=== PATIENT | female | born 1980 | race Caucasian/White ===

== ENCOUNTER 2016-12-30 08:48 | Inpatient (IN) | payer OTHER ==
[2016-12-30 08:48] VITALS: BMI 37.0
--- NOTE | 2016-12-30 09:28 | C.PDOC ---
History Of Present Illness 36 y/o female brought in by EMS presents to the ED with complains of worsening LLQ pain x2 weeks. Pain is localized. Denies fever, nausea,vomiting, diarrhea. Pt reports history of . No PMD. VIA TRANS LLQ PAIN X 2 WEEKS. LOCALIZED WORSENING. NO FEVER NVD. PSH CSECT. NO PMD. EXAM MOD DIST NONTOXIC ABD +LLQ TEND MOD SOFT NO R/G REMAINDE RNEG Time Seen by Provider: 12/30/16 09:07 Chief Complaint (Nursing): Abdominal Pain History Per: Patient History/Exam Limitations: no limitations Onset/Duration Of Symptoms: Days Current Symptoms Are (Timing): Worse Severity: Moderate Location Of Pain/Discomfort: LLQ Radiation Of Pain To:: None Quality Of Discomfort: "Pain" Associated Symptoms: denies: Fever, Nausea, Vomiting, Diarrhea Exacerbating Factors: None Alleviating Factors: None Recent travel outside of the [place]: No Past Medical History Reviewed: Historical Data, Nursing Documentation, Vital Signs Vital Signs: Last Vital Signs Temp 97.4 F L 12/30/16 08:52 Pulse 79 12/30/16 08:52 Resp 20 12/30/16 08:52 BP 136/71 12/30/16 08:52 Pulse Ox 100 12/30/16 10:34 Surgical History: - [facility] Procedures BILAT TUBAL DIVISION NEC (02/05/15) LOW CERVICAL (02/05/15) Family History: States: Unknown Family Hx - Social History Hx Tobacco Use: No Hx Alcohol Use: No Hx Substance Use: No - Immunization History Hx Tetanus Toxoid Vaccination: No Hx Influenza Vaccination: No Hx Pneumococcal Vaccination: No Review Of Systems Except As Marked, All Systems Reviewed And Found Negative. Constitutional: Negative for: Fever Gastrointestinal: Positive for: Abdominal Pain. Negative for: Nausea, Vomiting , Diarrhea Physical Exam - Physical Exam Appears: Non-toxic, In Acute Distress (moderate) Skin: Warm, Dry, No Rash Head: Atraumatic, Normacephalic Chest: Symmetrical Cardiovascular: Rhythm Regular, No Murmur Respiratory: Normal Breath Sounds, No Rales, No Rhonchi, No Wheezing Gastrointestinal/Abdominal: Soft, Tenderness (moderate LLQ), No Guarding, No Rebound Extremity: Bilateral: Atraumatic Neurological/Psych: Oriented x3, Normal Speech ED Course And Treatment - Laboratory Results Result Diagrams: 12/30/16 10:02 12/30/16 10:02 O2 Sat by Pulse Oximetry: 100 (room air) Pulse Ox Interpretation: Normal Medical Decision Making Medical Decision Making: Plan: * CT abdomen * labs * morphine, zofran * IV fluids ED OBSERVATION Date of observation admission: 12/30/16 Time of observation admission: 09:29 - Observation admission statement Patient is being placed in observation because:: ABD PAIN - Goals of Observation Goals of observation are:: NEG ACUTE BAD, SX IMPROVE - Progress Note Progress Note: 12/30/16 14:18 D/W DR FUNK SURG STAFF TRAINER WILL ADMIT EXAM NAD NONTOXIC. DOES NOT WISH ADDL PAIN MEDS @ THIS TIME Disposition Counseled Patient/Family Regarding: Studies Performed, Diagnosis - Disposition Disposition: HOSPITALIZED Disposition Time: 14:28 Condition: STABLE - POA Present On Arrival: None - Clinical Impression Clinical Impression: Intussusception intestine - Scribe Statement The provider has reviewed the documentation as recorded by the Luca Bingham Provider Attestation: All medical record entries made by the Luca were at my direction and personally dictated by me. I have reviewed the chart and agree that the record accurately reflects my personal performance of the history, physical exam, medical decision making, and the department course for this patient. I have also personally directed, reviewed, and agree with the discharge instructions and disposition. Decision To Admit - Pt Status Changed To: Hospital Disposition Of: Inpatient - Admit Certification Admit to Inpatient:: After my assessment, the patient will require hospitalization for at least two midnights. This is because of the severity of symptoms shown, intensity of services needed, and/or the medical risk in this patient being treated as an outpatient. - InPatient: Physician Admission Certification:: SEE NOTE - . Bed Request Type: Regular Admitting Physician: Mohamud Funk Patient Diagnosis: Intussusception intestine
[2016-12-30] MEDS ORDERED: Sodium Chloride 0.9% 1,000 ML IV ONE (09:29)
[2016-12-30] MEDS ORDERED: Iohexol 240 (50 ml) PO STA (09:29)
[2016-12-30] MEDS ORDERED: Sodium Chloride 0.9% 1,000 ML ONE (09:58)
[2016-12-30] MEDS ORDERED: Morphine 4 MG/ML VIAL ONE (09:58)
[2016-12-30] MEDS ORDERED: Iohexol 240 (50 ml) ONE (09:58)
[2016-12-30 10:06] LABS: RBC URINE < 1 /hpf (0-3); URINE BILIRUBIN NEGATIVE (NEGATIVE); URINE BLOOD NEGATIVE (NEGATIVE); URINE COLOR Yellow (YELLOW); URINE GLUCOSE (UA) NORMAL (Normal); URINE KETONE NEGATIVE (NEGATIVE); URINE LEUKOCYTE ESTERASE NEG Leu/uL (Negative); URINE PROTEIN NEGATIVE (NEGATIVE); URINE UROBILINOGEN NORMAL mg/dL (0.2-1.0); WBC URINE < 1 /hpf (0-5)
[2016-12-30 10:09] LABS: BASO # 0.1 K/uL (0.0-0.2); BASO % 0.6 % (0.0-2.0); EOS # 0.1 K/uL (0.0-0.7); HEMATOCRIT 40.9 % (34.0-47.0); LYMPH # 2.6 K/uL (1.0-4.3); LYMPH % 32.6 % (20.0-40.0); MEAN CELL VOLUME 85.3 fL (81.0-99.0); MEAN CORPUSCULAR HEMOGLOBIN 28.9 pg (27.0-31.0); MEAN CORPUSCULAR HGB CONC 33.9 g/dL (33.0-37.0); MEAN PLATELET VOLUME 8.6 fL (7.2-11.7); MONO # 0.5 K/uL (0.0-0.8); MONO % 6.1 % (0.0-10.0); RED CELL DISTRIBUTION WIDTH 14.5 % (11.5-14.5); WHITE BLOOD COUNT 7.9 K/uL (4.8-10.8)
[2016-12-30 10:19] LABS: CHLORIDE 99 mmol/L (98-107); SODIUM 137 mmol/L (132-148)
[2016-12-30 10:22] LABS: BLOOD UREA NITROGEN 7 mg/dL (7-17); CARBON DIOXIDE 27 mmol/L (22-30); GFR AFRICAN-AMERICAN > 60; GLUCOSE,RANDOM 92 mg/dL (65-105)
[2016-12-30 10:23] LABS: CALCIUM 8.4 mg/dl (8.6-10.4)
[2016-12-30] MEDS ORDERED: Iodixanol 320 MG/ML 100 ML BOTTLE IV ONE (11:45)
--- NOTE | 2016-12-30 14:04 | CT ---
PROCEDURE: CT Abdomen and Pelvis with contrast HISTORY: abd pain LLQ COMPARISON: Comparison is made to the previous ultrasound of the pelvis dated 06/26/2014 TECHNIQUE: Contrast dose: 100 mL Visipaque 320. Axial and reformatted coronal and sagittal CT images of the abdomen and pelvis were obtained after IV and oral contrast administration. Radiation dose: Total exam DLP = 1100.77 mGy-cm. This CT exam was performed using one or more of the following dose reduction techniques: Automated exposure control, adjustment of the mA and/or kV according to patient size, and/or use of iterative reconstruction technique. FINDINGS: LOWER THORAX: Unremarkable. LIVER: Unremarkable. No gross lesion or ductal dilatation. GALLBLADDER AND BILE DUCTS: Unremarkable. PANCREAS: Unremarkable. No gross lesion or ductal dilatation. SPLEEN: Unremarkable. ADRENALS: Unremarkable. No mass. KIDNEYS AND URETERS: Unremarkable. No hydronephrosis. No solid mass. VASCULATURE: Unremarkable. No aortic aneurysm. BOWEL: There is a small bowel small bowel intussusception seen at the left mid abdomen image 53 series 2. Findings nonspecific and may represent transitional small bowel intussusception. Otherwise no evidence of acute pathology in the GI system. APPENDIX: Normal appendix. PERITONEUM: Unremarkable. No free fluid. No free air. LYMPH NODES: Unremarkable. No enlarged lymph nodes. BLADDER: Unremarkable. REPRODUCTIVE: There is 4.5 centimeter complex cystic lesion at the left adnexa. The uterus and right adnexa are otherwise unremarkable. BONES: No acute fracture. OTHER FINDINGS: None. IMPRESSION: Suspicious for small bowel small bowel intussusception at the left mid abdomen best seen on image 53 series 2. No evidence of bowel obstruction. 4.5 centimeter complex cystic lesion at the left adnexa. If indicated further assessment by ultrasound may be obtained.
--- NOTE | 2016-12-30 16:55 | CP.PCM.CON ---
<Rafael Sgeundo - Last Filed: 12/30/16 17:17> History of Present Illness - History of Present Illness History of Present Illness: BOOTH MANAGER Consult for Dr. Burr 36 year old Female presents with Left lower abdominal pain starting a few days ago. She came to the ER today because the pain got worse. Patient states pain is associated with nausea and vomiting. Content of the vomiting included clear liquid and saliva, no bile and no blood. Pain radiates towards the left upper quadrant. Patient admits to one day of non-blood diarrhea last week. Patient denies fever and chills. She states she had a vaginal ultrasound in September and was told that she had a fibroid and a cyst on her ovary. Patient was told to follow up w/ serial ultrasounds to monitor size. Patient's BOOTH MANAGER is PastGynHx: , both c-sections. Tubal ligation. FDLMP: 12/17/16, periods regular, 4-5 days, describes as heavy with clots Pap Smear: September 2016, positive for HPV PMHx: GERD SurgicalHx: 2 C-sections, tubal ligation, tonsillectomy Allergies: NKDA Medications: Denies SocialHx: Denies tobacco, drugs, and alcohol, works as a homemaker Family Hx: Mother-breast cancer, great uncle (mother's side) - brain cancer Past Patient History - Infectious Disease Hx of Infectious Diseases: None - Past Social History Smoking Status: Never Smoked - PSYCHIATRIC Hx Substance Use: No - SURGICAL HISTORY Hx Surgeries: Yes Hx Section: Yes (x2) - ANESTHESIA Hx Anesthesia: Yes Hx Anesthesia Reactions: No Meds Allergies/Adverse Reactions: Allergies Allergy/AdvReac Type Severity Reaction Status Date / Time No Known Allergies Allergy Verified 12/30/16 08:54 - Medications Medications: Current Medications Sodium Chloride (Sodium Chloride 0.9%) 1,000 mls @ 100 mls/hr IV .Q10H ONE Stop: 12/30/16 19:28 Last Admin: 12/30/16 10:02 Dose: 100 mls/hr Morphine Sulfate (Morphine) 2 mg IVP Q4 PRN PRN Reason: Pain, moderate (4-7) Ondansetron HCl (Zofran Inj) 4 mg IVP Q4 PRN PRN Reason: Nausea/Vomiting Physical Exam - Constitutional Appears: Non-toxic, No Acute Distress - Head Exam Head Exam: ATRAUMATIC - Eye Exam Eye Exam: EOMI, PERRL - ENT Exam ENT Exam: Mucous Membranes Dry - Respiratory Exam Respiratory Exam: Clear to Auscultation Bilateral, NORMAL BREATHING PATTERN - Cardiovascular Exam Cardiovascular Exam: REGULAR RHYTHM, +S1, +S2 - GI/Abdominal Exam GI & Abdominal Exam: Soft, Tenderness (greatest in the LLQ). absent: Distended , Firm, Guarding, Rebound, Rigid - Extremities Exam Extremities exam: Negative for: pedal edema - Neurological Exam Neurological exam: Alert, Oriented x3 - Psychiatric Exam Psychiatric exam: Anxious, Normal Affect - Skin Skin Exam: Dry, Intact, Normal Color, Warm Results - Vital Signs Recent Vital Signs: Last Vital Signs Temp 98.5 F 12/30/16 14:43 Pulse 100 H 12/30/16 14:43 Resp 20 12/30/16 14:43 BP 124/79 12/30/16 14:43 Pulse Ox 100 12/30/16 14:43 - Labs Result Diagrams: 12/30/16 10:02 12/30/16 10:02 Labs: Laboratory Results - last 24 hr 12/30/16 16:05 Carcinoembryonic Ag 1.0 CA 125 Antigen 15.5 Assessment & Plan - Assessment and Plan (Free Text) Assessment: 36 year old female presents with abdominal pain and vomiting 2/[address]: intusseception at left mid abdomen. No SBO 4.5 cm complex ovarian cyst, left side U/S: 4.3 hyperechoic left sided cyst could represent hemorrhagic cyst. Normal blood flow bilaterally Anterior fibroid 2.5 x 2.6 cm Plan: - NPO, IVF, pain management - serial abdominal exams - Surgery following - Recommend serial transvaginal ultrasounds to monitor cyst Further recs discuss with Dr. Leno Segundo, PGY1 <Bhupendra Burr - Last Filed: 12/30/16 17:33> Meds - Medications Medications: Current Medications Famotidine (Pepcid) 20 mg IVP Q12 ANNA Sodium Chloride (Sodium Chloride 0.9%) 1,000 mls @ 100 mls/hr IV .Q10H ONE Stop: 12/30/16 19:28 Last Admin: 12/30/16 10:02 Dose: 100 mls/hr Sodium Chloride (Sodium Chloride 0.9%) 1,000 mls @ 125 mls/hr IV .Q8H ANNA Morphine Sulfate (Morphine) 2 mg IVP Q4 PRN PRN Reason: Pain, moderate (4-7) Ondansetron HCl (Zofran Inj) 4 mg IVP Q4 PRN PRN Reason: Nausea/Vomiting Results - Vital Signs Recent Vital Signs: Last Vital Signs Temp 97.8 F 12/30/16 16:52 Pulse 70 12/30/16 16:52 Resp 18 12/30/16 16:52 BP 123/73 12/30/16 16:52 Pulse Ox 96 12/30/16 16:52 - Labs Result Diagrams: 12/30/16 10:02 12/30/16 10:02 Labs: Laboratory Results - last 24 hr 12/30/16 16:05 Carcinoembryonic Ag 1.0 CA 125 Antigen 15.5 Attending/Attestation - Attestation I have personally seen and examined this patient.: Yes I have fully participated in the care of the patient.: Yes I have reviewed all pertinent clinical information: Yes Notes (Text): 12/30/16 17:30 Patient examined at bedside Agree with resident exam, assessment and plan Patient with c/o LLQ pain.Ct scan shows intususseption and left sided ovarian cyst Ultrasound shows uterus with small fibroid and hemorrhagic left ovarian cyst. Patient with no signs of acute abomen on exam No surgical intervention recommended from cost clerk stand-point.Pain control recommended for Hemorrhagic cyst Recommmend repeat ultrasound in 6 weeks Continue management as per surgery
--- NOTE | 2016-12-30 17:05 | CP.PCM.HP ---
History of Present Illness - History of Present Illness History of Present Illness: Surgery: Dr. Pal CC: Abd pain HPI: 36F w. hx of hyperlipidemia and gastritis presents w. diffuse abd pain. Pain has been present for several days and has been worsening over the past 2 days prompting her to come to ED. She states that the pain strong. Was initially intermittent, now constant. She had nausea/vomting x 1 this AM. She is passing flatus. Had BM today. Last BM was 1 week ago. Pt denies changes in appetite. No fever, + chills overnight. No MCKEON/blurred vision, no CP/palpitations , no SOB/cough, no hemautria/dysuria, no vaginal discharge. Pt states that she had a colonoscopy and EGD in [facility] back in March. She was told that she had gastritis and H. Pylori, had abx for 2 weeks and no additional f/u upon completion. PMH: Hyperlipidemia, gastritis, H. Pylori PSH: , tonsils Meds: none NKDA Social: no ETOH/tobacco/drugs Fhx: non-contributory Present on Admission - Present on Admission Any Indicators Present on Admission: No Review of Systems - Review of Systems All systems: reviewed and no additional remarkable complaints except (HPI) Past Patient History - Infectious Disease Hx of Infectious Diseases: None - Past Social History Smoking Status: Never Smoked - PSYCHIATRIC Hx Substance Use: No - SURGICAL HISTORY Hx Surgeries: Yes Hx Section: Yes (x2) - ANESTHESIA Hx Anesthesia: Yes Hx Anesthesia Reactions: No Meds Allergies/Adverse Reactions: Allergies Allergy/AdvReac Type Severity Reaction Status Date / Time No Known Allergies Allergy Verified 12/30/16 08:54 Physical Exam - Constitutional Appears: Non-toxic, No Acute Distress - Head Exam Head Exam: ATRAUMATIC, NORMOCEPHALIC - Eye Exam Eye Exam: EOMI. absent: Scleral icterus - ENT Exam ENT Exam: Mucous Membranes Moist - Neck Exam Neck exam: Positive for: Full Rom - Respiratory Exam Respiratory Exam: NORMAL BREATHING PATTERN. absent: Accessory Muscle Use, Respiratory Distress - GI/Abdominal Exam GI & Abdominal Exam: Soft, Tenderness (mild, suprapubic/LLQ). absent: Distended , Firm, Guarding, Mass, Rigid - Extremities Exam Extremities exam: Negative for: calf tenderness, pedal edema - Neurological Exam Neurological exam: Alert, Oriented x3 Results - Vital Signs Recent Vital Signs: Last Vital Signs Temp 97.8 F 12/30/16 16:52 Pulse 70 12/30/16 16:52 Resp 18 12/30/16 16:52 BP 123/73 12/30/16 16:52 Pulse Ox 96 12/30/16 16:52 - Labs Result Diagrams: 12/30/16 10:02 12/30/16 10:02 Labs: Laboratory Results - last 24 hr 12/30/16 16:05 Carcinoembryonic Ag 1.0 CA 125 Antigen 15.5 - Imaging and Cardiology CT scan - abdomen Status: Image reviewed by me, Report reviewed by me Assessment & Plan - Assessment and Plan (Free Text) Assessment: 36F w. abd pain, intussusception vs, ovarian cyst -consult GI and REGIONAL GEODETIC ADVISOR, f/u recommendations -NPO -IVF -morphine -zofran -serial abd exams -no urgent surgical intervention at this time -SCDs -f/u labs and TV U/S -d/w attending Christianne PGY2
--- NOTE | 2016-12-30 17:16 | US ---
HISTORY: ovarian cyst COMPARISON: None available. TECHNIQUE: Transabdominal and endovaginal ultrasound examination of the pelvis. FINDINGS: UTERUS: Measures 12.6 x 4.2 x 6 cm. Normal in size and appearance. There is anterior uterine fibroid measures 2.5 x 2.1 x 2.6 ENDOMETRIUM: Measures 7.7 mm in diameter. Unremarkable. CERVIX: No cervical abnormality identified. RIGHT OVARY: Measures 2.9 x 2 x 2.3 cm. No solid mass. Normal flow. LEFT OVARY: Measures 5.6 x 4.3 x 6 cm. There is slightly echogenic lesion at the left ovary measures 4.3 x 3.7 centimeter may represent hemorrhagic cyst P Normal flow. FREE FLUID: No significant free fluid noted. OTHER FINDINGS: None. IMPRESSION: 4.3 centimeter slightly hyperechoic lesion at the left ovary may represent hemorrhagic cyst. Follow-up reassessment after 6 weeks is recommended. Blood flow appreciated at both ovaries. Anterior uterine fibroid measures 2.5 x 2.6 centimeter.
[2016-12-30] MEDS: Sodium Chloride 0.9% 1,000 ML IV SCH (18:06)
--- NOTE | 2016-12-30 19:04 | CP.PCM.CON ---
History of Present Illness - History of Present Illness History of Present Illness: ASked today to see patietn for GI service for intussuseption. Pt seen with Rn and anesthesiology technologist Halley. present Pt reports 2 weeks of mid left abdom pain- mild until yesterda- severe, sharp pain. Came to ER. Had normal BMs and is passing gas. PMG 1 yr ago: EGD- gastritis and treated h pylori, and reports neg colonosocpy in [place]. Review of Systems - Constitutional Constitutional: absent: Chills, Fatigue, Fever, Headache, Weight Loss - EENT Eyes: absent: Photophobia - Cardiovascular Cardiovascular: absent: Chest Pain, Dyspnea - Respiratory Respiratory: absent: Dyspnea, Hemoptysis, Wheezing - Gastrointestinal Gastrointestinal: Abdominal Pain. absent: Constipation, Diarrhea, Hematemesis, Hematochezia, Loose Stools, Melena, Nausea - Genitourinary Genitourinary: absent: Flank Pain, Hematuria - Musculoskeletal Musculoskeletal: absent: Muscle Cramps - Integumentary Integumentary: absent: Rash, Jaundice - Neurological Neurological: absent: Convulsions, Memory Loss Past Patient History - Infectious Disease Hx of Infectious Diseases: None - Past Social History Smoking Status: Never Smoked - CARDIAC Hx Cardiac Disorders: No - PULMONARY Hx Respiratory Disorders: No - NEUROLOGICAL Hx Neurological Disorder: No - HEENT Hx HEENT Problems: No - RENAL Hx Chronic Kidney Disease: No - ENDOCRINE/METABOLIC Hx Endocrine Disorders: No - HEMATOLOGICAL/ONCOLOGICAL Hx Blood Disorders: No - INTEGUMENTARY Hx Dermatological Problems: No - MUSCULOSKELETAL/RHEUMATOLOGICAL Hx Falls: No - GENITOURINARY/GYNECOLOGICAL Hx Genitourinary Disorders: No - PSYCHIATRIC Hx Substance Use: No - SURGICAL HISTORY Hx Surgeries: Yes Hx Section: Yes (x2) - ANESTHESIA Hx Anesthesia: Yes Hx Anesthesia Reactions: No Hx Malignant Hyperthermia: No Has any member of the family had a problem w/ anesthesia?: No Meds Allergies/Adverse Reactions: Allergies Allergy/AdvReac Type Severity Reaction Status Date / Time No Known Allergies Allergy Verified 12/30/16 08:54 - Medications Medications: Current Medications Famotidine (Pepcid) 20 mg IVP Q12 ANNA Sodium Chloride (Sodium Chloride 0.9%) 1,000 mls @ 100 mls/hr IV .Q10H ONE Stop: 12/30/16 19:28 Last Admin: 12/30/16 10:02 Dose: 100 mls/hr Sodium Chloride (Sodium Chloride 0.9%) 1,000 mls @ 125 mls/hr IV .Q8H ANNA Last Admin: 12/30/16 18:06 Dose: 125 mls/hr Morphine Sulfate (Morphine) 2 mg IVP Q4 PRN PRN Reason: Pain, moderate (4-7) Ondansetron HCl (Zofran Inj) 4 mg IVP Q4 PRN PRN Reason: Nausea/Vomiting Physical Exam - Constitutional Appears: Well - Respiratory Exam Respiratory Exam: Clear to Auscultation Bilateral - Cardiovascular Exam Cardiovascular Exam: RRR - GI/Abdominal Exam GI & Abdominal Exam: Normal Bowel Sounds, Soft, Tenderness. absent: Firm, Guarding, Rigid Additional comments: Mild mid left tenderness - Extremities Exam Extremities exam: Positive for: normal inspection. Negative for: pedal edema - Neurological Exam Neurological exam: Alert, Oriented x3 - Psychiatric Exam Psychiatric exam: Normal Affect, Normal Mood Results - Vital Signs Recent Vital Signs: Last Vital Signs Temp 97.8 F 12/30/16 16:52 Pulse 70 12/30/16 16:52 Resp 18 12/30/16 16:52 BP 123/73 12/30/16 16:52 Pulse Ox 96 12/30/16 16:52 - Labs Result Diagrams: 12/30/16 10:02 12/30/16 10:02 Labs: Laboratory Results - last 24 hr 12/30/16 16:05 Carcinoembryonic Ag 1.0 CA 125 Antigen 15.5 Assessment & Plan (1) Abdominal pain Assessment and Plan: Due to intussuseption. Pt reports less abdom pain now. No obstruction. REC: follow-up by surgery and further management as per Surgeons. Status: Acute (2) Gastritis Assessment and Plan: H pylori treated 03/24. Rec: PPI., bland diet Status: Acute (3) Reflux esophagitis Status: Acute (4) Intussusception intestine Assessment and Plan: Treatment as per Surgical team Status: Acute
[2016-12-30 19:15] LABS: VENOUS BLOOD GAS BASE EXCESS -0.3 mmol/L (0.0-2.0); VENOUS BLOOD GAS PCO2 38 mmHg (40-60); VENOUS BLOOD PH 7.41 (7.32-7.43)
[2016-12-30 20:31] VITALS: RESP 20
[2016-12-31] MEDS: Sodium Chloride 0.9% 1,000 ML IV SCH (01:15)
[2016-12-31 01:58] VITALS: O2SAT 98
[2016-12-31 08:44] VITALS: BP 112/69; PULSE 84; TEMP 98
[2016-12-31 08:55] LABS: HEMATOCRIT 37.2 % (34.0-47.0); MEAN CELL VOLUME 86.4 fL (81.0-99.0); MEAN CORPUSCULAR HEMOGLOBIN 28.8 pg (27.0-31.0); MEAN CORPUSCULAR HGB CONC 33.3 g/dL (33.0-37.0); MEAN PLATELET VOLUME 8.6 fL (7.2-11.7); RED CELL DISTRIBUTION WIDTH 14.5 % (11.5-14.5); WHITE BLOOD COUNT 9.1 K/uL (4.8-10.8)
[2016-12-31 10:19] LABS: CHLORIDE 104 mmol/L (98-107); POTASSIUM 3.9 mmol/L (3.6-5.2); SODIUM 136 mmol/L (132-148)
[2016-12-31 10:22] LABS: BLOOD UREA NITROGEN 7 mg/dL (7-17); CARBON DIOXIDE 22 mmol/L (22-30); GFR AFRICAN-AMERICAN > 60; GLUCOSE,RANDOM 84 mg/dL (65-105)
[2016-12-31 10:23] LABS: CALCIUM 7.6 mg/dl (8.6-10.4)
--- NOTE | 2016-12-31 10:40 | CP.PCM.PN ---
Subjective - Date & Time of Evaluation Date of Evaluation: 12/31/16 Time of Evaluation: 10:34 - Subjective Subjective: Surgery: Dr. Pal Pt seen and examined. Resting comfortably in bed. Pain improved compared to yesterday. No F/C. No N/V/D. Objective - Vital Signs/Intake and Output Vital Signs (last 24 hours): Temp Pulse Resp BP Pulse Ox 98.0 F 84 20 112/69 98 12/31/16 08:42 12/31/16 08:42 12/31/16 08:42 12/31/16 08:42 12/31/16 08:42 Intake and Output: 12/31/16 12/31/16 06:59 18:59 Intake Total 1000 Balance 1000 - Medications Medications: Current Medications Famotidine (Pepcid) 20 mg IVP Q12 [facility] Last Admin: 12/31/16 09:11 Dose: 20 mg Sodium Chloride (Sodium Chloride 0.9%) 1,000 mls @ 125 mls/hr IV .Q8H [facility] Last Admin: 12/31/16 01:15 Dose: 125 mls/hr Morphine Sulfate (Morphine) 2 mg IVP Q4 PRN PRN Reason: Pain, moderate (4-7) Last Admin: 12/30/16 20:23 Dose: 2 mg Ondansetron HCl (Zofran Inj) 4 mg IVP Q4 PRN PRN Reason: Nausea/Vomiting - Labs Labs: 12/31/16 08:50 12/31/16 08:50 - Constitutional Appears: Non-toxic, No Acute Distress - Head Exam Head Exam: ATRAUMATIC, NORMOCEPHALIC - Eye Exam Eye Exam: EOMI Pupil Exam: NORMAL ACCOMODATION - ENT Exam ENT Exam: Mucous Membranes Moist - Neck Exam Neck Exam: Full ROM - Respiratory Exam Respiratory Exam: NORMAL BREATHING PATTERN. absent: Accessory Muscle Use, Respiratory Distress - GI/Abdominal Exam GI & Abdominal Exam: Soft. absent: Distended, Firm, Guarding, Rigid, Tenderness , Hernia, Rebound - Extremities Exam Extremities Exam: absent: Calf Tenderness, Pedal Edema - Neurological Exam Neurological Exam: Alert, Awake, Oriented x3 Assessment and Plan - Assessment and Plan (Free Text) Assessment: 36F w. abd pain, ovarian cyst vs intussusception -Per POWERHOUSE ENGINEER, ovarian cyst can be managed outpatient -Per GI, no intervention for intussuception from their stand point -Prelim urine cx: positive gram (+) cocci, will start cipro -will start CLD, monitor bowel fxn, ADAT -serial abd exams -d/w attending Christianne PGY2
--- NOTE | 2016-12-31 11:23 | CP.PCM.PN ---
Subjective - Date & Time of Evaluation Date of Evaluation: 12/31/16 Time of Evaluation: 11:22 - Subjective Subjective: no complaints. pe- essentially neg. ok for discharge Objective - Vital Signs/Intake and Output Vital Signs (last 24 hours): Temp Pulse Resp BP Pulse Ox 98.0 F 84 20 112/69 98 12/31/16 08:42 12/31/16 08:42 12/31/16 08:42 12/31/16 08:42 12/31/16 08:42 Intake and Output: 12/31/16 12/31/16 06:59 18:59 Intake Total 1000 Balance 1000 - Medications Medications: Current Medications Ciprofloxacin (Cipro) 500 mg PO BID ANNA Famotidine (Pepcid) 20 mg IVP Q12 [facility] Last Admin: 12/31/16 09:11 Dose: 20 mg Sodium Chloride (Sodium Chloride 0.9%) 1,000 mls @ 125 mls/hr IV .Q8H [facility] Last Admin: 12/31/16 01:15 Dose: 125 mls/hr Morphine Sulfate (Morphine) 2 mg IVP Q4 PRN PRN Reason: Pain, moderate (4-7) Last Admin: 12/30/16 20:23 Dose: 2 mg Ondansetron HCl (Zofran Inj) 4 mg IVP Q4 PRN PRN Reason: Nausea/Vomiting - Labs Labs: 12/31/16 08:50 12/31/16 08:50
== END 2016-12-31 12:51 | disposition home or self-care (01) | DRG 390 ==
LOC: C.ER 08:48 → C.9OBSV 09:29 → OBSVTOIN 14:28 → C.9E 14:28 → C.3T 15:05 → C.9E 15:42 → C.6T 16:40
PROVIDERS: ADMIT Surgery; ATTEND Surgery
DX: K56.1 Intussusception (principal); N83.202 Unspecified ovarian cyst, left side; E78.5 Hyperlipidemia, unspecified; K29.70 Gastritis, unspecified, without bleeding; K21.0 Gastro-esophageal reflux disease with esophagitis

== ENCOUNTER 2017-11-17 08:45 | Emergency (ER) | payer OTHER ==
[2017-11-17 08:45] VITALS: BMI 37.0
[2017-11-17 08:50] VITALS: BP 125/76; PULSE 89; RESP 20; TEMP 98.1; O2SAT 99
--- NOTE | 2017-11-17 09:46 | C.PDOC ---
History Of Present Illness 36 y/o female presents to the ED with 1 week history of runny nose, cough, and sensation of ear fullness. She denies associated fever, neck pain/stiffness, headache, chest pain, or SOB. Patient has not tried any [id number] medications at home. Time Seen by Provider: 11/17/17 09:34 Chief Complaint (Nursing): Cough, Cold, Congestion History Per: Patient History/Exam Limitations: no limitations Onset/Duration Of Symptoms: Days (x 1 week) Current Symptoms Are (Timing): Still Present Past Medical History Reviewed: Historical Data, Nursing Documentation, Vital Signs Vital Signs: Last Vital Signs Temp 98.1 F 11/17/17 08:47 Pulse 89 11/17/17 08:47 Resp 20 11/17/17 08:47 BP 125/76 11/17/17 08:47 Pulse Ox 99 11/17/17 11:21 - Medical History PMH: Hyperlipidemia Denies: Chronic Kidney Disease Surgical History: - [facility] Procedures BILAT TUBAL DIVISION NEC (02/05/15) LOW CERVICAL (02/05/15) Family History: States: Unknown Family Hx - Social History Hx Tobacco Use: No Hx Alcohol Use: No Hx Substance Use: No - Immunization History Hx Tetanus Toxoid Vaccination: No Hx Influenza Vaccination: No Hx Pneumococcal Vaccination: No Review Of Systems Constitutional: Negative for: Fever, Chills ENT: Positive for: Nose Discharge, Nose Congestion, Other (Ear fullness) Cardiovascular: Negative for: Chest Pain Respiratory: Positive for: Cough. Negative for: Shortness of Breath Neurological: Negative for: Headache Physical Exam - Physical Exam Appears: Non-toxic, No Acute Distress Skin: Warm, Dry, No Rash Head: Atraumatic, Normacephalic Eye(s): bilateral: Normal Inspection, PERRL, EOMI Ear(s): Bilateral: Normal (no erythema) Nose: Discharge (clear nasal discharge) Oral Mucosa: Moist Throat: Erythema (mild), No Exudate Neck: Normal ROM, Supple Chest: Symmetrical Cardiovascular: Rhythm Regular, No Murmur Respiratory: Normal Breath Sounds, No Rales, No Rhonchi, No Wheezing Neurological/Psych: Oriented x3, Normal Speech ED Course And Treatment O2 Sat by Pulse Oximetry: 99 (RA) Pulse Ox Interpretation: Normal Medical Decision Making Medical Decision Making: Impression: 36 y/o F with URI symptoms Patient counseled regarding diagnosis. Will d/c patient home with rx for Claritin. Advised to follow up with the clinic for further evaluation Disposition Counseled Patient/Family Regarding: Diagnosis, Need For Followup, Rx Given - Disposition Referrals: at [facility] [Outside] Disposition: HOME/ ROUTINE Disposition Time: 09:41 Condition: STABLE Prescriptions: Loratadine/Pseudoephedrine [Claritin-D 24 Hour Tablet] 1 each PO HS #10 tab.er.[id number] Instructions: Upper Respiratory Infection (ED) Forms: [employer] (German), Work Excuse - POA Present On Arrival: None - Clinical Impression Clinical Impression: Influenza-like illness - Scribe Statement The provider has reviewed the documentation as recorded by the Luca Solis Provider Attestation: All medical record entries made by the Luca were at my direction and personally dictated by me. I have reviewed the chart and agree that the record accurately reflects my personal performance of the history, physical exam, medical decision making, and the department course for this patient. I have also personally directed, reviewed, and agree with the discharge instructions and disposition.
== END 2017-11-17 09:45 | disposition home or self-care (01) ==
LOC: C.ER 08:45
DX: J11.1 Influenza due to unidentified influenza virus with other respiratory manifestations (principal)

== ENCOUNTER 2017-12-30 18:06 | Emergency (ER) | payer SELFPAY ==
[2017-12-30 18:06] VITALS: BMI 37.0
[2017-12-30 18:18] VITALS: TEMP 98.7
[2017-12-30] MEDS ORDERED: DiphenhydrAMINE 50 mg/ml Inj IVP STA (18:42)
[2017-12-30] MEDS ORDERED: Sodium Chloride 0.9% 1,000 ML IV ONE (18:42)
--- NOTE | 2017-12-30 18:48 | C.PDOC ---
History Of Present Illness 37 y/o female with no significant PMHx presents to the ED complaining of dizziness, headache, nausea, and vomiting for 2 days. Denies any associated fevers or URI symptoms. Patient has no other complaints at this time. Also denies any weakness, numbness, chest pain, or SOB. Time Seen by Provider: 12/30/17 18:31 Chief Complaint (Nursing): Dizziness/Lightheaded History Per: Patient History/Exam Limitations: no limitations Onset/Duration Of Symptoms: Days Current Symptoms Are (Timing): Still Present Past Medical History Reviewed: Historical Data, Nursing Documentation, Vital Signs Vital Signs: Last Vital Signs Temp 98.7 F 12/30/17 20:08 Pulse 82 12/30/17 20:08 Resp 18 12/30/17 20:08 BP 118/77 12/30/17 20:08 Pulse Ox 100 12/30/17 20:08 - Medical History PMH: Hyperlipidemia Denies: Chronic Kidney Disease Surgical History: - [facility] Procedures BILAT TUBAL DIVISION NEC (02/05/15) LOW CERVICAL (02/05/15) Family History: States: Unknown Family Hx - Social History Hx Tobacco Use: No Hx Alcohol Use: No Hx Substance Use: No - Immunization History Hx Tetanus Toxoid Vaccination: No Hx Influenza Vaccination: No Hx Pneumococcal Vaccination: No Review Of Systems Except As Marked, All Systems Reviewed And Found Negative. Constitutional: Negative for: Fever, Chills Eyes: Negative for: Vision Change Cardiovascular: Negative for: Chest Pain Respiratory: Negative for: Cough, Shortness of Breath Gastrointestinal: Positive for: Nausea, Vomiting Neurological: Positive for: Headache, Dizziness. Negative for: Weakness, Numbness Physical Exam - Physical Exam Appears: Non-toxic, No Acute Distress Skin: Normal Color, Warm, Dry Head: Atraumatic, Normacephalic Eye(s): bilateral: Normal Inspection, PERRL, EOMI Nose: Normal Oral Mucosa: Moist Neck: Normal ROM, Supple Chest: Symmetrical Cardiovascular: Rhythm Regular, No Murmur Respiratory: Normal Breath Sounds, No Rales, No Rhonchi, No Wheezing Gastrointestinal/Abdominal: Soft, No Tenderness, No Distention Extremity: Bilateral: Atraumatic, Normal Color And Temperature, Normal ROM Neurological/Psych: Oriented x3, Normal Speech, Normal Cranial Nerves, Normal Motor, Normal Sensation, Other (No focal deficits) Gait: Steady ED Course And Treatment - Laboratory Results Result Diagrams: 12/30/17 19:08 12/30/17 19:08 O2 Sat by Pulse Oximetry: 98 (RA) Pulse Ox Interpretation: Normal Medical Decision Making Medical Decision Making: matt nv - no thunderclap, neuro intect Time: 18:42 Initial Plan: * CMP * CBC * PTT * Prothrombin time * UA * IV fluids * Reglan 10 mg IV * Benadryl 25 mg IV * * pt reassesed pain completely resolved. neuro intact asking for dc. in indication at this time for neuo imaging. encouraged outpt fu. Disposition - Disposition Referrals: [facility] [Outside] [facility] [Outside] Tyree Barahona MD [Staff Provider] - Disposition: HOME/ ROUTINE Disposition Time: 08:00 Condition: STABLE Additional Instructions: please follow up with your doctor. return to er with worsening symptoms or concerns. Prescriptions: Acetaminophen/Butalbital/Caf [Fioricet] 1 tab PO Q8 PRN #20 tab PRN Reason: Headache Instructions: Headache, Adult Forms: [facility] (Romansh) Print Language: UKRAINIAN - Clinical Impression Clinical Impression: Headache - Scribe Statement The provider has reviewed the documentation as recorded by the Scribe (Olga Solis) Provider Attestation: All medical record entries made by the Scribe were at my direction and personally dictated by me. I have reviewed the chart and agree that the record accurately reflects my personal performance of the history, physical exam, medical decision making, and the department course for this patient. I have also personally directed, reviewed, and agree with the discharge instructions and disposition.
[2017-12-30] MEDS ORDERED: Sodium Chloride 0.9% 1,000 ML ONE (18:53)
[2017-12-30] MEDS ORDERED: DiphenhydrAMINE 50 mg/ml Inj ONE (18:53)
[2017-12-30 19:17] LABS: BASO % 0.4 % (0.0-2.0); EOS # 0.1 K/uL (0.0-0.7); EOS % 1.4 % (0.0-4.0); HEMOGLOBIN 13.7 g/dL (11.0-16.0); LYMPH # 3.1 K/uL (1.0-4.3); LYMPH % 32.5 % (20.0-40.0); MEAN CELL VOLUME 86.7 fL (81.0-99.0); MEAN CORPUSCULAR HEMOGLOBIN 29.9 pg (27.0-31.0); MEAN CORPUSCULAR HGB CONC 34.5 g/dL (33.0-37.0); MEAN PLATELET VOLUME 8.5 fL (7.2-11.7); MONO # 0.5 K/uL (0.0-0.8); NEUT # 5.8 K/uL (1.8-7.0); NEUT % 60.7 % (50.0-75.0); RBC 4.57 Mil/uL (3.80-5.20); RED CELL DISTRIBUTION WIDTH 14.1 % (11.5-14.5); WHITE BLOOD COUNT 9.5 K/uL (4.8-10.8)
[2017-12-30 19:21] LABS: HCG,QUALITATIVE URINE NEGATIVE (NEGATIVE)
[2017-12-30 19:24] LABS: SQUAMOUS EPITHIAL 1 /hpf (0-5); URINE BACTERIA OCC (<OCC); URINE BILIRUBIN NEGATIVE (NEGATIVE); URINE BLOOD NEGATIVE (NEGATIVE); URINE CLARITY Hazy (Clear); URINE COLOR Yellow (YELLOW); URINE GLUCOSE (UA) NORMAL (Normal); URINE LEUKOCYTE ESTERASE NEG Leu/uL (Negative); URINE PROTEIN NEGATIVE (NEGATIVE); URINE UROBILINOGEN NORMAL mg/dL (0.2-1.0)
[2017-12-30 19:30] LABS: CALCIUM 8.6 mg/dl (8.6-10.4); GFR AFRICAN-AMERICAN > 60; GFR NON-AFRICAN AMERICAN > 60; URINE AMORPHOUS SEDIMENT MODERATE /ul (<OCC)
[2017-12-30 19:31] LABS: INR 1.1; PROTHROMBIN TIME 11.7 SECONDS (9.7-12.2)
[2017-12-30 19:33] LABS: ALB/GLOB RATIO 1.1 (1.0-2.1); ALBUMIN 4.5 g/dL (3.5-5.0); ALT/SGPT 11 U/L (9-52); AST/SGOT 55 U/L (14-36); BLOOD UREA NITROGEN 16 mg/dL (7-17)
[2017-12-30 20:09] VITALS: BP 118/77; PULSE 82; RESP 18
[2017-12-30 23:43] VITALS: O2SAT 98
== END 2017-12-30 20:09 | disposition home or self-care (01) ==
LOC: C.ER 18:06
DX: R51 Headache (principal)
CPT/HCPCS: 80053; 81001; 84703; 85025; 85610; 85730; 96361; 96374; 96375; 99285; J1200; J2765; J7040